=== PATIENT | female | born 1935 | race Caucasian/White ===

== ENCOUNTER 2017-04-25 14:27 | Emergency (ER) | payer OTHER, MEDICARE ==
[~2017-04-25] VITALS: Ht 154.9 cm; Wt 68.0 kg
[~2017-04-25 14:27] MED LIST: ALLERGY RELIEF25 M2 PO; APAP500 PO; CALCIUM OYSTER500 MG PO; COZAAR 50 MG TA50 M2 PO; DILTIAZEM 24HR240 MG PO; DIOVAN HCT 1601 EACH; FISH OIL SOFTG1 EACH PO; FLAGYL500 MG PO; HYDROCHLOROTH12.5 M1 PO; LIPITOR40 MG PO; LOSARTAN-HCTZ1 EAC2 PO; MEDROL DOSPAK21 TA1 PO; NORCO 5-325 TA1 EACH PO; OMEPRAZOLE 20 M20 MG PO; PEPCID20 MG PO; PROZAC 10 MG CA10 MG PO; PROZAC 20 MG20 M1 PO; SPIRONOLACTONE25 M1 PO; TOPROL XL100 MG PO; TRAVATAN Z2.5 ML OPHTHALMIC; TYLENOL325 MG PO; VANCOMYCIN100 MG/ML PO; VITAMIN D400 UNI1 PO; [UNRECOGNIZED DRUG - OTHER] TOP
[2017-04-25] MEDS ORDERED: IBUPROFEN 600600 M1 PO (16:47)
== END 2017-04-25 17:16 | disposition home or self-care (01) ==
LOC: ER 14:27
DX: M16.12 Unilateral primary osteoarthritis, left hip (principal); I10 Essential (primary) hypertension; F10.99 Alcohol use, unspecified with unspecified alcohol-induced disorder; Z85.3 Personal history of malignant neoplasm of breast; Z90.710 Acquired absence of both cervix and uterus; Z96.641 Presence of right artificial hip joint; Z90.49 Acquired absence of other specified parts of digestive tract; Z88.8 Allergy status to other drugs, medicaments and biological substances; Z88.0 Allergy status to penicillin; Z91.030 Bee allergy status; Z87.891 Personal history of nicotine dependence

== ENCOUNTER 2017-05-04 11:06 | Emergency (ER) | payer OTHER, MEDICARE ==
[~2017-05-04] VITALS: Ht 154.9 cm; Wt 68.0 kg
[~2017-05-04 11:06] MED LIST changes: +IBUPROFEN 600600 M1 PO
[2017-05-04 11:37] LABS: URINE BILIRUBIN NEGATIVE (Negative); URINE BLOOD NEGATIVE (Negative); URINE COLOR YELLOW; URINE GLUCOSE-RANDOM* NEGATIVE (Negative); URINE KETONES TRACE (Negative); URINE PROTEIN (DIPSTICK) NEGATIVE (Negative); URINE SPECIFIC GRAVITY 1.015 (1.003-1.035); URINE UROBILINOGEN 0.2 E.U./dl (0.2-1.0)
[2017-05-04 11:39] LABS: URINE LEUKOCYTES-REFLEX 2+ (Negative)
[2017-05-04 11:45] LABS: SQUAMOUS 4-10 Moderate /LPF (0-3)
[2017-05-04 11:46] LABS: CASTS None Seen /LPF (None Seen); CRYSTALS None Seen /LPF (None Seen); URINE RBC None Seen /HPF (0-2)
[2017-05-04] MEDS ORDERED: TRAMADOL 50 MG50 MG PO (11:57)
[2017-05-04] MEDS ORDERED: MACROBID 100 M100 M1 PO (11:57)
[2017-05-04] MEDS ORDERED: KEFLEX500 MG PO (12:07)
== END 2017-05-04 12:29 | disposition home or self-care (01) ==
LOC: ER 11:06
PROVIDERS: Physician Assistant
DX: M16.12 Unilateral primary osteoarthritis, left hip (principal); N39.0 Urinary tract infection, site not specified; I10 Essential (primary) hypertension; Z90.12 Acquired absence of left breast and nipple; Z90.710 Acquired absence of both cervix and uterus; Z85.3 Personal history of malignant neoplasm of breast; Z87.19 Personal history of other diseases of the digestive system; Z87.891 Personal history of nicotine dependence; Z88.0 Allergy status to penicillin; Z91.030 Bee allergy status; Z88.8 Allergy status to other drugs, medicaments and biological substances

== ENCOUNTER 2021-04-20 22:51 | Inpatient (IN) | payer OTHER ==
[~2021-04-20] VITALS: Ht 154.9 cm; Wt 68.9 kg
--- NOTE | ~2021-04-20 | EMS ---
[facility] [address] [place] [address] EMS Patient Care Report Name: CHANNING KINSEY Room #: REG BELEN Snow#: [id number] Admission: 04/20/21 Attend Phys: Discharge: Date of : 31 Report #: [id number] THIS REPORT FOR: //name// Report Transmitted: 04/20/2021 22:35 EMS Care Summary [facility] MED-ACT Incident [id number] @ 04/20/2021 22:18 Incident Location [address] [place] [address] Dr [place], [id number] Patient CHANNING KINSEY Female, 86 Years 1935 Patient [facility] [place] [address] Patient History Hypertension (HTN), Patient Allergies Penicillin allergy,Other drug allergy, Patient Medications Isosorbide, Hydralazine, Fluoxetine, Metoprolol, Rosuvastatin, Chief Complaint chest pain Disposition Transported No Lights/[place] Dispatch Reason Chest Pain (Non-Traumatic) Transported To [facility] Narrative MA dispatched to pt with complaint of chest pain and chills. Pt found sitting upright in kitchen chair, AOx4 with her family around her. Rosa M figueredo arrived on scene with [facility] [address] [place] [address] EMS Patient Care Report Name: CHANNING KINSEY Room #: CRYSTAL Snow#: [id number] Admission: 04/20/21 Attend Phys: Discharge: Date of : 31 Report #: [id number] Pt states she has had chest pain throughout the day but states it has gotten worse in the last hour. Pt also states that she has had chills over the last few hours. Pt states she took her temperature and says it was 102. Pt denies any nausea but says she has not been eating well today due to indigestion. 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 Pt states she took all her daily medication today and states she has not had a recent change in medications. Pt has not been ill or injured lately and says she has been vaccinated for covid. Pt says pain is a little worse when she takes a deep breath. Pt rates pain at a 6 out of 10 and says its an ache. Pt denies any pain radiation. Pt was assisted to stand and walk to the stretcher. Pt was secured to the stretcher and loaded into the ambulance. 12-lead while in the ambulance on scene. Pt diagnostics cannot be obtained nor an iv started on the pt's left arm due to past partial mastectomy. Pt temperature was taken via IR and oral and both temperatures were 98 degrees. Pt did not feel overly warm or clammy. Pt rested comfortably through transport. Pt was sheet lifted from stretcher to hospital bed. Pt report to RN in room with pt and pt left AOx4 reclined in bed with both bedrails up. Initial Vitals @22:36P: 88,BP: 159/73,SpO2: 95, @22:44P: 90,BP: 162/74,SpO2: 95, @22:29P: 89,SpO2: 87,AL Suspected: false @22:27P: 67,R: 14,BP: 142/74,Pain: 6/10,Temp: 98.7F,SpO2: 90, Assessments @22:25MENTAL:Person Oriented,Time Oriented,Place Oriented,Event Oriented,SKIN:HEENT:Head/Face: No Abnormalities,Neck/Airway: No Abnormalities,LUNG SOUNDS:General: No Abnormalities,ABDOMEN:General: No Abnormalities,PELVIS//GI:No Abnormalities,EXTREMITIES:Left Arm: No Abnormalities,Right Arm: No Abnormalities,Left Leg: No Abnormalities,Right Leg: No Abnormalities,PULSE:NEURO:No Abnormalities, Impression Chest Pain / Discomfort Procedures @22:37Oxygen FlowRate: 3 Device: Nasal Cannula (NC) Response: UnchangedSucceeded@22:2912-Lead ECGResponse: UnchangedSucceeded Timeline 22:16,Call Received 22:16,Psap Call 22:18,Dispatched 22:18,En Route [address] [address] EMS Patient Care Report Name: TIOCHANNINGSommer PUTNAM Room #: REG BELEN Snow#: [id number] Admission: 04/20/21 Attend Phys: Discharge: Date of : 31 Report #: [id number] 22:23,On Scene 22:23,At Patient 22:27,BP: 142/74 M,PULSE: 67,RR: 14 R,SPO2: 90 Ox,ETCO2: ,BG: ,PAIN: 6,GCS: , 22:29,12-Lead ECG,Response: UnchangedSucceeded, 22:29,BP: / M,PULSE: 89,RR: R,SPO2: 87 Ox,ETCO2: ,BG: ,PAIN: ,GCS: , 22:35,Depart Scene 22:36,BP: 159/73 M,PULSE: 88,RR: R,SPO2: 95 Ox,ETCO2: ,BG: ,PAIN: ,GCS: , 22:37,Oxygen FlowRate: 3 Device: Nasal Cannula (NC) Response: UnchangedSucceeded, 22:44,BP: 162/74 M,PULSE: 90,RR: R,SPO2: 95 Ox,ETCO2: ,BG: ,PAIN: ,GCS: , 22:46,At Destination 23:09,Call Closed Disclaimer v1.1 Copyright 2020 [employer], Search to Phone This EMS Care Summary contains data elements from the applicable legal record (which may be displayed differently). It is designed to provide pertinent information for the following purposes: continuity of care, clinical quality, and state data reporting. The complete legal record is available to ED staff and administrators of the receiving hospital in [employer]'s Patient Tracker. All data is provided "as is."
[~2021-04-20 22:51] MED LIST changes: +KEFLEX500 MG PO; +MACROBID 100 M100 M1 PO; +TRAMADOL 50 MG50 MG PO
[2021-04-20 22:53] VITALS: BP 160/72
[2021-04-21 00:03] LABS: CALCIUM 8.7 mg/dL (8.5-10.1); POTASSIUM 4.2 mmol/L (3.5-5.1)
[2021-04-21] MEDS ORDERED: IMDUR 30 MG TAB30 M1 PO (00:06)
[2021-04-21] MEDS ORDERED: HYDRALAZINE 2525 M1 PO (00:07)
[2021-04-21] MEDS ORDERED: ROSUVASTATIN CA40 MG PO (00:07)
[2021-04-21] MEDS ORDERED: OMEPRAZOLE 20 M20 M1 PO (00:08)
[2021-04-21] MEDS ORDERED: PROZAC20 MG PO (00:08)
[2021-04-21] MEDS ORDERED: METOPROLOL SUCC25 M1 PO (00:08)
[2021-04-21] MEDS ORDERED: AMLODIPINE BESY10 MG PO (00:08)
[2021-04-21 00:15] LABS: BASOPHILS 0.5 % (0.0-2.0); EOSINOPHILS 0.8 % (0.0-3.0); HEMATOCRIT 42.3 % (37.0-47.0); HEMOGLOBIN 13.8 gm/dL (12.0-15.0); LYMPHOCYTES 4.6 % (24.0-44.0); MCH 30.5 pg (26.0-34.0); MCHC 32.5 g/dL (28.0-37.0); MCV 93.8 fL (80.0-100.0); MONOCYTES 4.6 % (1.0-8.0); PLATELET COUNT 164 thou/uL (150-400); POLYS 89.5 % (36.0-66.0); RBC 4.51 mil/uL (4.20-5.00); RDW 14.1 % (10.5-14.5); WBC 16.8 thou/uL (4.0-11.0)
[2021-04-21 03:20] VITALS: BP 128/62
[2021-04-21 03:49] VITALS: BP 134/59
[2021-04-21 06:05] LABS: CALCIUM 8.2 mg/dL (8.5-10.1); POTASSIUM 3.9 mmol/L (3.5-5.1)
[2021-04-21 07:30] VITALS: BP 126/58
--- NOTE | 2021-04-21 08:29 | NUR ---
PT ARRIVED TO UNIT APPROX 0359, CONSENTS OBTAINED, ADMISSION PACKET PROVIDED. PT AOX4. PT REPORTS 2/10 CHEST PAIN, REPORTING SIGNIFICANT IMPROVEMENT SINCE ADMISSION TO UNIT FROM ER. PT DENIES SOB WHILE ON 4L O2 VIA NC. PT TOLERATING PO INTAKE OF FLUIDS AND HEART HEALTHY DIET WITHOUT ISSUE. PT WITHOUT NAUSEA OR EMESIS. PT AMBULATING WITH STANDBY ASSIST TO BATHROOM, RESTING IN BED OTHERWISE. FREQUENT REPOSITIONING ENCOURAGED WHILE IN BED, PT NOTED TO SHIFT INDEPENDENTLY. SENSATION INTACT, CAPILLARY REFILL LESS THAN 3SEC, PERIPHERAL PULSES FAINT THROUGHOUT ALL EXTREMITIES. PT ENCOURAGED TO NOTIFY STAFF FOR ALL NEEDS, CALL LIGHT WITHIN REACH, BED ALARM ON, BED LOCKED IN LOWEST POSITION, FREQUENT MONITORING WILL CONTINUE.
--- NOTE | 2021-04-21 09:20 | EKG ---
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 : 1935 Requested By: Donell Tierney Order Number: [id number] MD: Ger Waite Measurements Intervals [place] Rate: 97 P: -1 MO: 147 QRS: -47 QRSD: 128 T: 9 QT: 372 QTc: 473 Interpretive Statements Sinus rhythm Probable left atrial enlargement RBBB and LAFB Inferior infarct, old Lateral leads are also involved Compared to ECG 03/22/2015 14:15:46 Left anterior fascicular block now present Right bundle-branch block now present Sinus tachycardia no longer present Ventricular premature complex(es) no longer present Myocardial infarct finding still present Electronically Signed On 04-21-2021 9:20:20 CDT by Ger Waite [email or web address] <ELECTRONICALLY SIGNED> By: Ger Waite MD 04/21/21919 26 26 Ger Waite MD /EPI
--- NOTE | 2021-04-21 09:41 | NUR ---
Initial screening risk for wt loss. Admitted with pneumonia and poor appetite. Wt is actually up 10 lb above pts reported wt and pt has been tolerating first few meals since admit. Low nutrition risk
[2021-04-21] MEDS ORDERED: MAGNESIUM250 M1 PO (10:43)
[2021-04-21 11:50] VITALS: BP 129/58
[2021-04-21 14:37] LABS: HEMATOCRIT 39.7 % (37.0-47.0); HEMOGLOBIN 12.9 gm/dL (12.0-15.0); MCH 30.6 pg (26.0-34.0); MCHC 32.4 g/dL (28.0-37.0); MCV 94.7 fL (80.0-100.0); RBC 4.2 mil/uL (4.20-5.00); RDW 14.3 % (10.5-14.5); WBC 18.2 thou/uL (4.0-11.0)
[2021-04-21 16:05] VITALS: BP 125/46
--- NOTE | 2021-04-21 17:49 | NUR ---
Case opened to follow for dc planning needs. Del[employer]essen Goods Stock Clerk visited with the pt at bedside this afternoon. She is a&ox4 and indicates her son Azar and dtr in law and gson live with her. She is in a ranch style home with only one step to enter. She does not use any dme. Her pcp is Dr. Drew Sandra. She has been vaccinated for covid adn her covid now is negative. She is being treated for pneumonia and is hoping to go home in a couple of days. She has had hh with [facility] years ago but does not feel she will need anything at dc. Cm role introduced should dc needs arise. She is currently on 3liters of o2 and does not have o2 at home. Will continue to follow along should dc needs arise. Therapy evals suggested if the pt continues to feal weak.
[2021-04-21 19:50] VITALS: BP 123/51
--- NOTE | 2021-04-22 00:03 | NUR ---
PATIENT RESTING IN BEDSIDE CHAIR UPON ARRIVAL TO THE ROOM. PATIENT IS AAOx4. DENIES PAIN OR NEEDS AT THIS TIME. VSS. IV TO R FA INTACT WITH NO S/S OF INFILTRATION. STATES THAT SHE HAS BEEN ABLE TO HAVE A BM BUT CONTINUES TO FEEL CONSTIPATED. PATIENT ABDOMEN IS ROUND AND SOFT. PATIENT IS ABLE TO STAND AND MOVE FROM CHAIR TO BED UNDER HER OWN STRENGTH. COMPLIANT WITH MEDICATION AND TREATMENT. NO S/S OF DISTRESS NOTED. WILL CONTINUE TO MONITOR FOR CHANGES.
[2021-04-22 04:40] VITALS: BP 170/69
[2021-04-22 07:45] VITALS: BP 130/61; BP 144/82
[2021-04-22 11:55] VITALS: BP 125/47
[2021-04-22 16:10] VITALS: BP 124/57
[2021-04-22 19:29] VITALS: BP 141/59
[2021-04-23 03:38] LABS: ABSOLUTE NEUTROPHILS 9.5 thou/uL (1.4-8.2); BASOPHILS 0.3 % (0.0-2.0); EOSINOPHILS 2.1 % (0.0-3.0); HEMATOCRIT 37.1 % (37.0-47.0); HEMOGLOBIN 12.5 gm/dL (12.0-15.0); MCH 31.4 pg (26.0-34.0); MCHC 33.6 g/dL (28.0-37.0); MCV 93.4 fL (80.0-100.0); MONOCYTES 6.7 % (1.0-8.0); PLATELET COUNT 157 thou/uL (150-400); POLYS 78.9 % (36.0-66.0); RBC 3.97 mil/uL (4.20-5.00); RDW 14.3 % (10.5-14.5)
[2021-04-23 04:00] VITALS: BP 132/82
--- NOTE | 2021-04-23 04:51 | NUR ---
ASSUMED CARE OF PT 0100. DENIES PAIN. NO NEEDS VOICED. CALL LIGHT WITHIN REACH. FREQUENT OBSERVATION.
[2021-04-23 15:40] VITALS: BP 139/50
[2021-04-23 19:14] VITALS: BP 132/61
[2021-04-24 03:54] VITALS: BP 118/50
[2021-04-24 04:22] LABS: HEMOGLOBIN 12.2 gm/dL (12.0-15.0); MCH 31.5 pg (26.0-34.0); MCHC 33.8 g/dL (28.0-37.0); RBC 3.87 mil/uL (4.20-5.00); RDW 13.8 % (10.5-14.5); WBC 7.5 thou/uL (4.0-11.0)
[2021-04-24 04:37] LABS: CALCIUM 8.7 mg/dL (8.5-10.1); CREATININE 0.9 mg/dL (0.6-1.0); MAGNESIUM 1.9 mg/dL (1.8-2.4); POTASSIUM 3.6 mmol/L (3.5-5.1)
--- NOTE | 2021-04-24 07:26 | NUR ---
RECEIVED REPORT FROM KIKI SIN RN.PT A/O X 4.UP INDEPENDENTLY.LYMPHEDEMA NOTED TO LEFT ARM COVERED WITH ACEWRAP.MONITOR SHOWS SR.POC CONTINUED.
[2021-04-24 08:00] VITALS: BP 131/59
[2021-04-24 12:00] VITALS: BP 145/47
[2021-04-24] MEDS ORDERED: CEFUROXIME500 MG PO (14:22)
[2021-04-24] MEDS ORDERED: MUCINEX600 MG PO (14:22)
[2021-04-24 16:00] VITALS: BP 127/62
[2021-04-24 16:07] VITALS: BP 145/47
--- NOTE | 2021-04-24 16:10 | NUR ---
CM FAXED REFERRAL TO [facility] FOR [facility]. CM SPOKE WITH RAMONA SINGH WHO REPORTS THEY CAN ACCEPT. CM FAXED DISCHARGE PAPERWORK TO [facility] AND CONFIRMED THEY RECEIVED IT. PLANS FOR PT TO DISCHARGE HOME WITH HOME HEALTH TODAY.
[2021-04-24 17:27] VITALS: BP 145/47
--- NOTE | 2021-04-24 17:44 | NUR ---
ASSESSMENT CHARTED - MEDS PER OCT. JAMI DIET AND FLUIDS. UP IN ROOM TOLERATED. NO CO'S OF PAIN OR NAUSEA. PT HAD EXERCISE OX COMPLETED - PT REQUIRING O2 AT 2 L NC WITH REST AND EXERTION. PT HOME THIS AFTERNOON - INSTRUCTION RE HOME MEDS/ CARE AND FOLLOW UP - EDUCATION RE PORTABLE TANK AND LINEC[employer] GOING TO HOME FOR HOME USE. PT LEFT UNIT VIA WHEELCHAIR - ACCOMPANIED BY SON -HOME VIA PVT VEHICLE.
--- NOTE | 2021-04-26 09:02 | NUR ---
I have reviewed the documentation by Lucy Grady from 04/24/21 to 04/24/21 and I concur with it. KEVIN BRUNSON
== END 2021-04-24 17:51 | disposition home health service (06) | DRG 871 ==
LOC: ER 22:51 → EROBS 04-21 03:36 → 2N 04-21 03:36
PROVIDERS: Emergency Medicine; Nurse Practitioner Family; ADMIT Internal Medicine; ATTEND Internal Medicine
DX: A41.9 Sepsis, unspecified organism (principal); J18.9 Pneumonia, unspecified organism; J96.01 Acute respiratory failure with hypoxia; I89.0 Lymphedema, not elsewhere classified; K44.9 Diaphragmatic hernia without obstruction or gangrene; I10 Essential (primary) hypertension; R07.89 Other chest pain; R53.81 Other malaise; E66.9 Obesity, unspecified; K25.9 Gastric ulcer, unspecified as acute or chronic, without hemorrhage or perforation; R79.1 Abnormal coagulation profile; Z96.641 Presence of right artificial hip joint; Z20.822 Contact with and (suspected) exposure to COVID-19; Z90.12 Acquired absence of left breast and nipple; Z90.5 Acquired absence of kidney; Z90.710 Acquired absence of both cervix and uterus; Z87.11 Personal history of peptic ulcer disease; Z85.3 Personal history of malignant neoplasm of breast; Z79.899 Other long term (current) drug therapy; Z88.0 Allergy status to penicillin; Z88.8 Allergy status to other drugs, medicaments and biological substances; Z91.030 Bee allergy status; Z87.891 Personal history of nicotine dependence; Z90.49 Acquired absence of other specified parts of digestive tract; Z68.28 Body mass index [BMI] 28.0-28.9, adult
CPT/HCPCS: 10081